=== PATIENT | female | born 1990 | race Two or more races ===

== ENCOUNTER 2017-05-05 15:02 | Emergency (ER) | payer OTHER ==
[2017-05-05 15:15] VITALS: BP 132/69; PULSE 69; RESP 16; TEMP 98.6; O2SAT 96
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
== END 2017-05-05 15:54 | disposition home or self-care (01) ==
LOC: CED 15:02
DX: S50.811A Abrasion of right forearm, initial encounter (principal); S70.311A Abrasion, right thigh, initial encounter; Z87.891 Personal history of nicotine dependence; W50.4XXA Accidental scratch by another person, initial encounter; Y92.69 Other specified industrial and construction area as the place of occurrence of the external cause; Y99.0 Civilian activity done for income or pay; Y93.89 Activity, other specified
CPT/HCPCS: G0472